=== PATIENT | female | born 1990 | race African-American/Black ===

== ENCOUNTER 2017-03-06 17:45 | Inpatient (IN) | payer OTHER ==
--- NOTE | ~2017-03-06 | CO ---
Unit #: [id number] #: [id number] Patient: ARRON MORROW [id number] [place] [address] [id number] MR#: [id number] NAME: ARRON MORROW ROOM: P183 Age: 26 Sex: F Admission Date: 03/06/2017 : 1990 Attending Physician: Amado Suárez M.D. CONSULTATION REPORT SUBJECTIVE Arron is a 26-year-old who complained of urgency and frequency. We have been asked to assess and treat. OBJECTIVE GENERAL: Alert, well nourished, in no apparent distress. VITAL SIGNS: Blood pressure 128/70, heart rate 80, respirations 16, temperature 98.6. ABDOMEN: Soft, nontender. BACK: Negative CVA tenderness. DIAGNOSTIC STUDIES LABORATORY RESULTS: Urinalysis; 4+ bacteria, 5 to 10 wbc's. ASSESSMENT Urinary tract infection. PLAN Bactrim DS one p.o. b.i.d. x3 days. Dictated by... Mayank OrdazAAv-Coni. for Jo Ann Silva/renay TD: 03/11/2017 01:10 JOB #: [id number] CONSULTATION REPORT Page 1 of 1 X Eden Salamanca CONSULTATION REPORT
--- NOTE | ~2017-03-06 | DS ---
Unit #: [id number] #: [id number] Patient: ARRON MORROW [id number] [place] [address] [id number] MR#: [id number] NAME: ARRON MORROW ROOM: P183 Age: 26 Sex: F Admission Date: 03/06/2017 : 1990 Discharge Date: 03/10/2017 Attending Physician: Amado Suárez M.D. DISCHARGE SUMMARY REASON FOR ADMISSION Arron is a 26-year-old woman who reports she has been using Percocet via the nasal inhalation route up to 180 mg daily. This has caused her psychosocial dysfunction including at work and she was unable to continue this way in the outpatient setting. She was admitted for detox. DIAGNOSTIC STUDIES LABORATORY RESULTS: Beta-hCG was negative. See chart for other laboratory results. HOSPITAL COURSE The patient was admitted and placed on the opioid detox protocol. A urinary tract infection was determined to urinalysis and she was started on a 3-day course of Bactrim by our medical consultants. She had [id number] detox symptomatology and continued to be free of suicidal ideation throughout the hospitalization. On the date of discharge, she had some anxiety, but no depression or suicidal ideation and was once again able to contract for safety. DISCHARGE DIAGNOSES AXIS I: Opioid dependence with withdrawal, uncomplicated. AXIS II: No diagnosis. AXIS III: Urinary tract infection. AXIS IV: AXIS V: DISCHARGE INSTRUCTIONS Follow up with chemical dependency programing of the patient's choice and with her primary care physician. DISCHARGE MEDICATIONS Seroquel 100 mg one-half to one at bedtime as needed for insomnia; Bactrim DS b.i.d. until gone for UTI. CONDITION AT DISCHARGE Improved. PROGNOSIS Fair to good. DIET AND ACTIVITY Per primary care doctor. Unit #: [id number] #: [id number] Patient: ARRON MORROW Dictated by... Jo Ann LindquistH/renay TD: 03/10/2017 13:51 JOB #: [id number] DISCHARGE SUMMARY Page 1 of 1 X Amado Suárez MD X DISCHARGE SUMMARY
--- NOTE | ~2017-03-06 | PN ---
Unit #: [id number] #: [id number] Patient: ARRON MORROW [id number] [facility] [address] [place] [address] [id number] MR#: [id number] NAME: ARRON MORROW ROOM: P183 Age: 26 Sex: F Admission Date: 03/06/2017 : 1990 Attending Physician: Amado Suárez M.D. Admitting Physician: Amado Suárez M.D. Primary Care Physician: Primary Care Physician Sonia BRENNAN PROGRESS NOTES DATE 03/08/2017 DISCUSSION Christina reports ongoing active withdrawal symptoms today. She also has mild lower abdominal discomfort, and her new urinalysis is indicative of possible urinary tract infection. She is alert and fully oriented. Her memory and concentration are fair. Her thought processes are logical with no active psychosis. PLAN We will continue with detox protocol and get a medical consultation for her UTI. Dictated by... Jo Ann LindquistH/bzg TD: 03/10/2017 10:08 JOB #: [id number] ANU PROGRESS NOTES Page 1 of 1 X Amado Suárez MD PROGRESS NOTE
--- NOTE | ~2017-03-06 | HP ---
Unit #: [id number] #: [id number] Patient: ARRON MORROW [id number] [place] [address] [id number] MR#: [id number] NAME: ARRON MORROW ROOM: P183 Age: 26 Sex: F Admission Date: 03/06/2017 : 1990 Attending Physician: Amado Suárez M.D. Admitting Physician: Amado Suárez M.D. Primary Care Physician: Primary Care Physician No HISTORY AND PHYSICAL HISTORY OF PRESENT ILLNESS Arron is a 26 year old admitted to [facility] because of her abuse of opioids. PAST MEDICAL HISTORY Long history of opioid abuse. PAST SURGICAL HISTORY x1. ALLERGIES No known drug allergies. SOCIAL HISTORY Smokes on occasion. Denies alcohol. Admits to using up to 180 mg of some kind of opioid on a daily basis. FAMILY HISTORY Medically noncontributory. REVIEW OF SYSTEMS CONSTITUTIONAL: No fever or chills. HEENT: Denies any sore throat, ear pain or runny nose. CARDIOVASCULAR: Denies chest pain, irregular heart rhythm or palpitations. CHEST: Denies shortness of breath or cough. No hemoptysis. GASTROINTESTINAL: Denies nausea, vomiting, diarrhea or chronic constipation. ENDOCRINE: Denies history of increased thirst or urination. No recent significant weight loss or gain. GENITOURINARY: Denies dysuria, frequency, or hematuria. SKIN: Denies any rashes. HEMATOLOGIC: Denies history of increased bleeding or bruising. MUSCULOSKELETAL: Denies any hot, swollen joints. No generalized muscle pain. NEUROLOGIC: Denies problems with vision or speech. No frequent, severe headaches. No numbness, tingling or weakness in any extremities. Denies loss of bladder or bowel control. CURRENT MEDICATIONS Detox protocol. PHYSICAL EXAMINATION GENERAL: Alert, well-nourished, in no apparent distress. Unit #: [id number] #: [id number] Patient: ARRON MORROW VITAL SIGNS: Blood pressure 110/70, heart rate 70, respirations 16, temperature 98.6. WEIGHT: 158. HEIGHT: 5 feet 8 inches. SKIN: Warm and dry without rash or lesion. HEENT: Normocephalic. TMs not viewed. Oral and nasal passages clear. Conjunctivae clear. PERRLA. EOMs intact. NECK: Supple without lymphadenopathy or thyromegaly. HEART: Regular rate and rhythm without murmur. LUNGS: Clear. ABDOMEN: Soft, nontender. : Not done. EXTREMITIES: No evidence of cyanosis, clubbing or edema. Moves all without focal deficit. NEUROLOGICAL: Grossly within normal limits. Cranial Nerves: II: Visual mast are intact. III, IV AND : Extraocular movements are intact. Pupils are equal, round and reactive to light. V: Facial sensation is grossly normal. VII: Facial movements and expression are normal. VIII: Auditory acuity grossly intact. IX, X: Uvula is midline. Phonation is normal. XI: Patient shrugs shoulders and turns head normally. XII: Tongue protrudes in the midline. Sensory and Motor Function: Sensory and motor sensation is grossly normal. Motor: moves all extremities well. Coordination: Gait is normal. Deep Tendon Reflexes: Intact. IMPRESSION Psychiatric admission. RECOMMENDATIONS PSYCHIATRIC: Per psychiatrist. MEDICAL: See no contraindications to participate in facility's activities. MEDICAL PROGNOSIS Good. MEDICAL CONDITION Stable. Dictated by... Eden Salamanca P.A.-C. for Jo Ann Silva/chela TD: 03/07/2017 17:59 JOB #: [id number] Unit #: [id number] #: [id number] Patient: ARRON MORROW HISTORY AND PHYSICAL Page 1 of 1 X Eden Salamanca HISTORY AND PHYSICAL
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
[2017-03-07 10:11] LABS: BASOPHIL% 0.3 % (0-2.5); HEMATOCRIT 42.2 % (35.0-45.0); HEMOGLOBIN 14.1 gm/dL (12.0-16.0); LYMPHOCYTE# 2.3 X10e3 (1.0-3.5); LYMPHOCYTE% 51.2 % (17.0-45.0); MEAN CELL VOLUME 88.1 FL (83-96); MEAN CORPUSCULAR HEMOGLOBIN 29.5 PG (28-34); MEAN CORPUSCULAR HGB CONC 33.5 g/dL (30-36); MEAN PLATELET VOLUME 8.2 FL (6.5-11.5); MONOCYTE# 0.3 X10e3 (0-1.0); MONOCYTE% 5.9 % (3.0-12.0); NEUTROPHIL# 1.9 X10e3 (1.5-7.1); NEUTROPHIL% 41.6 % (40-75); PLATELET COUNT 214 X10e3 (140-420); RED BLOOD COUNT 4.78 X10e (3.90-5.30); RED CELL DISTRIBUTION WIDTH 12.6 % (11.0-15.5); WHITE BLOOD COUNT 4.5 X10e3 (4.0-10.5)
[2017-03-07 10:15] LABS: DIFF IND YES
[2017-03-07 10:25] LABS: ALBUMIN SERUM 3.7 g/dL (3.5-5.0); BILIRUBIN,TOTAL 0.8 mg/dL (0.2-2.0); BUN/CREATININE RATIO 17.14; CALCIUM SERUM 9.1 mg/dL (8.4-10.2); CREATININE SERUM 0.7 mg/dL (0.6-1.4); GLOM FILT RATE Estimated 137.6 mL/min (>60); POTASSIUM 4.4 mmol/L (3.5-5.1); PROTEIN TOTAL SERUM 6.4 g/dL (6.0-8.3)
[2017-03-07 10:57] LABS: PLATELET ESTIMATE NORMAL (NORMAL); RBC NORMAL YES
[2017-03-08 09:56] LABS: URINE APPEARANCE CLOUDY; URINE BILIRUBIN NEG (NEG); URINE BLOOD NEG (NEG); URINE COLOR DK YELLOW; URINE GLUCOSE NEG (NEG); URINE KETONE NEG (NEG); URINE LEUKOCYTE ESTERASE 1+ (NEG); URINE NITRATE POS (NEG); URINE PH 7.5 (5-8); URINE PROTEIN NEG (NEG); URINE SPECIFIC GRAVITY 1.013 (1.003-1.035)
[2017-03-08 09:59] LABS: URBCS1 AUWI 0-2 /[HPF] (0-2); URINE BACTERIA AUWI 4+ (NEGATIVE); URINE SQUAMOUS EPITHELIAL CELL FEW /[HPF]
== END 2017-03-10 13:09 | disposition home or self-care (01) | DRG 897 ==
LOC: P1E 19:38
PROVIDERS: Psychiatry & Neurology Psychiatry
PROC: HZ2ZZZZ Detoxification Services for Substance Abuse Treatment (ICD-10-PCS; principal; 2017-03-06)
DX: F11.23 Opioid dependence with withdrawal (principal); N39.0 Urinary tract infection, site not specified; F17.210 Nicotine dependence, cigarettes, uncomplicated; Z81.1 Family history of alcohol abuse and dependence
CPT/HCPCS: 80053; 81003; 84703; 85025; 86592; 87086; 87088; 87186